=== PATIENT | male | born 1945 | race Caucasian/White ===

== ENCOUNTER 2016-11-08 12:09 | Outpatient (CLI) | payer MEDICARE ==
[~2016-11-08] VITALS: Ht 182.9 cm; Wt 83.2 kg
--- NOTE | ~2016-11-08 | HEMODYNAMI ---
PATIENT:MEENA BARGER MEDICAL RECORD: [id number] : 41 LOCATION:D.CAT ADMISSION DATE: 11/08/16 Generatedon:11/08/201615:16 Patient name: MEENA BARGER Patient #: [id number] SSN: : 1945 Date of study: 11/08/2016 Page: Of Hemodynamic Procedure Report Patient Data Patient Demographics Procedure consent was obtained First Name: MEENA Gender: Male Last Name: CHARBEL : 1945 Middle Initial: E Age: 71 year(s) Patient #: [id number] Race: Unknown Additional ID: [id number] Contact details [address]: [address] [place] [address] [address] State: [place] City: [place] Zip code: [address] Past Medical History Allergies Allergen Reaction Date Comments Reported Other allergy 11/08/2016 nsaids Admission Admission Data Admission Date: 11/08/2016 Admission Time: 12:09 Height (in.): 72 BSA: 2.05 (m2) Height (cm.): 182.88 BMI: 24.82 (kg/m2) Weight (lbs.): 183 Weight (kg.): 83.01 Procedure Procedure Types Cath Procedure Diagnostic Procedure PPM/ICD Permanent Pacer Generator Exg. Miscellaneous Procedures Moderate Sedation up to 30 minutes Procedure Description Procedure Date Procedure Date: 11/08/2016 Procedure Start Time: 14:49 Procedure End Time: 15:14 Procedure Staff Name Function Dewayne Cee MD Assisting physician Anshul Adkins RT Monitor Saji Ochoa RT Scrub Cristel Zapien RN Nurse Chava Stovall MD Performing Physician Procedure Data Cath Procedure Estimated blood loss: 5 ml Procedure Medications Medication Administration Route Dosage Ancef (1Gm/50ml NS) I.V.P.B 1 g Ancef Irrigation added to field 1 g (1gm/500ml NS) Versed I.V. 0.5 mg Fentanyl I.V. 50 mcg Lidocaine 1% with added to field 20 ml Epi Bupivacaine 0.5% added to field 20 ml Hemodynamics Rest BSA: 2.05 (m2) O2 Consumption: Estimated: 242.67 (ml/min) O2 Consumption indexed : Estimated:118.38 (ml/min/m) Heart Rate: 78 (bpm) Snapshots Pre Cath Intra NCS Post Cath Vital Signs Time Heart Resp SPO2 NIBP (mmHg) Rhythm Pain Sedation Rate (ipm) (%) Status Level (bpm) 14:44:29 78 15 100 185/93(145) NSR 0 (11) 10(A) , No pain 14:49:02 81 15 100 198/104(148) NSR 0 (11) 10(A) , No pain 14:53:43 77 14 99 187/85(128) NSR 0 (11) 10(A) , No pain 14:58:17 76 15 98 190/82(135) NSR 0 (11) 10(A) , No pain 15:02:47 74 16 95 173/78(129) Paced 0 (11) 10(A) , No pain 15:07:14 84 15 96 165/81(124) Paced 0 (11) 10(A) , No pain 15:11:42 75 17 98 165/84(124) Paced 0 (11) 10(A) , No pain Medications Time Medication Route Dose Verified Delivered Reason Notes Effectiv eness by by 14:44:41 Ancef I.V.P.B 1 g Yarsanism Yarsanism Per (1Gm/50ml Jaye Cee MD physician NS) 14:46:05 Ancef added 1 g Yarsanism Yarsanism used for Irrigation to Jaye Cee MD procedure (1gm/500ml field NS) 14:50:17 Versed I.V. 0.5 Yarsanism Cristel for mg Jaye Zapien RN sedation 14:50:22 Fentanyl I.V. 50 Yarsanism Cristel for mcg Jaye Zapien RN sedation 14:50:43 Lidocaine added 20 ml Yarsanism Yarsanism used for 1% with Epi to Jaye Cee MD procedure field 14:51:04 Bupivacaine added 20 ml Yarsanism Yarsanism used for 0.5% to Jaye Cee MD procedure field Procedure Log Time Note 14:26:09 Saji Ochoa RT(R) sent for patient. Start room use. 14:26:10 Time tracking: Regular hours 14:26:14 Plan of Care:Hemodynamics will remain stable., Cardiac rhythm will remain stable., Comfort level will be maintained., Respiratory function will remain adequate., Patient/ family verbilizes understanding of procedure., Procedure tolerated without complication., Recovers from procedure without complications.. 14:27:07 [facility] representative Wil Thomas present for procedure. 14:29:53 Use device set Pacemaker Set 14:35:04 Patient received from Pre/Post Procedure Room to [facility] 3 Alert and oriented. Tansferred to table in Supine position. 14:35:06 Warm blankets applied, and eduardo hugger turned on for patient comfort. 14:35:06 Correct patient and procedure confirmed by team. 14:35:08 Signed procedure consent form obtained from patient. 14:35:10 ECG and BP/O2 sat monitors applied to patient. 14:39:36 Patient Height : 182.88 cm 14:39:43 Patient Weight : 83.01 kg 14:41:57 Full Disclosure recording started 14:42:19 H&P Date Dictated: 11/01/2016 Within 30 days and on chart.. 14:42:22 Pre-procedure instructions explained to patient. 14:42:24 Pre-op teaching completed and patient verbalized understanding. 14:42:26 Family in waiting room. 14:42:28 Patient NPO since Midnight. 14:42:41 Patient allergic to Other allergynsaids 14:43:11 Vital chart was started 14:43:12 Baseline sample Acquired. 14:43:18 Rhythm: sinus rhythm 14:43:25 Is the patient allergic to Iodine/contrast media? No. 14:44:34 Is patient on blood thinner?No 14:44:39 Patient diabetic? No. 14:44:41 Ancef (1Gm/50ml NS) 1 g I.V.P.B was administered by Dewayne Cee MD; Per physician; 14:44:41 If diabetic: On Metformin? No 14:44:54 Previous problem with sedation/anesthesia? No ? 14:44:56 Snore? No 14:44:58 Sleep apnea? No 14:44:59 Deviated septum? No 14:45:00 Opens mouth fully? Yes 14:45:02 Sticks out tongue? Yes 14:45:04 Airway obstruction? No ? 14:45:06 Dentures? No ? 14:45:12 Patient pain scale 0/10 ?. 14:45:29 IV patent on arrival in Lt subclavian with 0.9% NaCl at O. 14:45:50 Lab results completed and on chart. 14:46:02 Left chest area was prepped with chlora-prep and draped in sterile fashion 14:46:05 Ancef Irrigation (1gm/500ml NS) 1 g added to field was administered by Dewayne Cee MD; used for procedure; 14:46:09 Alarms reviewed by R. N. 14:46:09 Sharps counted by scrub and verified by R.N. 14:46:16 --------ALL STOP TIME OUT------ 14:46:17 Final Timeout: patient, procedure, and site verified with staff and physician. All members of the team are in agreement. 14:46:22 Left chest site verified by team. 14:46:27 Physical assessment completed. ASA score P 2 - A patient with mild systemic disease as per Dewayne Cee MD. 14:46:32 Sedation plan: IV Moderate Sedation Versed, Fentanyl 14:46:53 Use device set Femoral Dx 14:48:53 Pre sharps counted by scrub and verified by RN: Sutures: 8 Sponges: 5 Stick needles: 2 Skin needles: 2 Blade: 1 Cautery: 1 14:49:05 Procedure started. 14:49:33 Pre sharps counted by scrub and verified by RN: Sutures: 14 Sponges: 5 Stick needles: 0 Skin needles: 2 Blade: 1 Cautery: 1 14:49:38 Grounding pad site Left thigh. 14:49:41 Grounding pad site free from injury. 14:50:17 Versed 0.5 mg I.V. was administered by Cristel Zapien RN; for sedation; 14:50:22 Fentanyl 50 mcg I.V. was administered by Cristel Zapien RN; for sedation; 14:50:43 Lidocaine 1% with Epi 20 ml added to field was administered by Dewayne Cee MD; used for procedure; 14:51:01 Lidocaine 1% w/epi and Bupivacaine 0.5% to left subclavicular area by Dewayne Cee MD. 14:51:04 Bupivacaine 0.5% 20 ml added to field was administered by Dewayne Cee MD; used for procedure; 14:52:30 Mepilex Dressing opened to sterile field. 14:52:42 2.0 Ticron Multipack opened to sterile field. 14:52:44 3.0 Vicryl Multipack [id number] opened to sterile field. 14:52:45 5.0 Monocryl PS2 [id number] opened to sterile field. 14:53:11 Medtronic Adapta PPM Dual Generator opened to sterile field. 14:54:34 Incision made to left subclavicular area. 14:54:37 Generator pocket made/opened. 14:57:30 PPM Dual was removed.. 14:58:50 Ventricular lead tested. 14:58:53 Atrial lead tested. 15:02:23 PPM Dual was attached to lead(s) and inserted into pocket. 15:02:25 PPM Dual was inserted subcutaneously to left chest. 15:03:03 Generator was sutured in place with 2-0 ticron. 15:03:11 Device pocket was irrigated with Ancef. 15:04:33 Parameters-- Generator: Mode: demand. Lower Rate: 60bpm. Upper Rate: 130bpm. 15:05:11 Parameters--Ventricular P/R Wave: 6.9mV. Current: 1.2mA; Threshold: 0.4V; Impedence: 421OHMS. 15:05:48 Parameters--Atrial P/R Wave: 3.3mV. Current: 1.7mA; Threshold: 0.3V; Impedence: 451OHMS. 15:07:54 Subcutaneous closure was completed with 3-0 vicryl. 15:08:01 Skin closure was completed with 5-0 monocryl. 15:08:18 Lt Chest incision was dressed with Mepilex dressing. 15:08:28 Procedure ended.(Physican Out) 15:08:58 Post sharps counted by scrub and verified by RN: Sutures: 14 Sponges: 5 Stick needles: 0 Skin needles: 2 Blade: 1 Cautery: 1 15:09:11 Sharps counted by scrub and verified by R.N. 15:09:15 Insertion/operative site no bleeding no hematoma. 15:09:25 Post-procedure physical assessment completed. ASA score P 2 - A patient with mild systemic disease as per Dewayne Cee MD. 15:09:33 Post procedure rhythm: paced 15:09:41 Estimated blood loss: 5 ml 15:09:44 Post procedure instruction explained to patient.Patient verbalizes understanding. 15:12:09 Procedure type changed to Cath procedure, Diagnostic procedure, PPM/ICD, Permanent Pacer Generator Exg., Miscellaneous Procedures, Moderate Sedation up to 30 minutes 15:14:31 Procedure and supply charges have been captured, reviewed, submitted and are correct. 15:14:33 Vital chart was stopped 15:14:34 See physician's report for complete and final results. 15:14:37 Report given to Pre/Post Procedure Room. 15:14:40 Patient transfered to Pre/Post Procedure Room with Stretcher. 15:14:44 Procedure ended. 15:14:44 Full Disclosure recording stopped 15:14:52 End room use (Document Last) Device Usage Item Name Manufacture Quantity Catalog Hospital Part Current Minimal L ot# / Number Charge Number Stock Stock Serial# Code Tegaderm 4 3M 1 [id number] 262131 906674 [id number] 5 x 4 Diagnostic Cardinal 1 [id number] 197032 91851 104460 30 Infinity Health 5Fr Multipack catheter Acist Acist 1 29619 304253 727765 315225 5 Manifold Medical Systems Inc Acist Hand Acist 1 60037 484343 545769 224881 5 Control Medical Systems Inc Cordis 5Fr Cardinal 1 896800 5 3DRC Health Catheter (MP) Cordis 5Fr Cardinal 1 775013 5 Pigtail Health Catheter (MP) Cordis 5Fr Cardinal 1 979263 5 JL 4.0 Health Catheter (MP) [facility] 1 868099 917677 620968 086509 30 260cm J .035 wire Terumo 5Fr Terumo 1 [id number] 596128 749383 642174 40 Abie Sheath Medline Cardinal 1 [id number] 850610 52528 179168 5 Cath Pack Health Bag Microtek 1 2002S 991490 25320 381161 5 Decanter Medical Inc. Acist Acist 1 84861 714869 720746 191494 20 Syringe Medical Systems Inc Mepilex Cardinal 1 373928 937033 766455 259046 5 Dressing Health 2.0 Ticron Ethicon 2 [id number] 468618 75194 264344 5 Multipack 3.0 Vicryl Ethicon 1 [id number] 123337 183774 852075 5 Multipack [id number] 5.0 Ethicon 1 Y495G 558538 416538 235098 5 Monocryl PS2 Y495G Medtronic Medtronic 1 ADD01 743379 587938 5 n [id number] Adapta PPM 2 018-08-28 Dual Generator Signature Audit [place] Stage Time Signature Unsigned Intra-Procedure 11/08/2016 Anshul Adkins 3:16:43 PM RT(R) Signatures Monitor : Anshul Adkins RT Signature : Date : Time : [address] [address]
--- NOTE | ~2016-11-08 | OP ---
PATIENT NAME: MEENA BARGER MEDICAL RECORD: [id number] :41 LOCATION:D.CAT ADMISSION DATE: SURGEON: DEWAYNE ALEXIS MD DATE OF OPERATION: 11/08/2016 PREOPERATIVE DIAGNOSES: 1. End-of-life generator. 2. Sick sinus syndrome. 3. Atrial fibrillation. POSTOPERATIVE DIAGNOSES: 1. End-of-life generator. 2. Sick sinus syndrome. 3. Atrial fibrillation. PROCEDURE: Left subclavian vein pacemaker generator exchange. SURGEON: Dewayne Alexis MD REPORT OF PROCEDURE: The patient's left chest was prepped and draped in sterile fashion. A total of 20 mL of 1% lidocaine with epinephrine was infused into the surrounding tissues. A transverse incision was made overlying the indwelling pacemaker. The pacemaker was eviscerated through the wound and the leads were detached. These leads were checked and noted to be functioning appropriately. The new pacemaker generator was affixed to the leads. This new pacemaker generator was placed into the subcutaneous pouch and sutured down with an 0 Ti-Cron. We then irrigated out the wound with antibiotic solution. The subcutaneous tissues were then reapproximated with interrupted 3-0 Vicryl and the skin was closed with running subcutaneous 5-0 Monocryl. COMPLICATIONS: None. CONDITION: Stable. ANESTHESIA: Local. BLOOD LOSS: Minimal. TRANSINT:[id number] Voice Confirmation ID: [id number] DOCUMENT ID: [id number] DEWAYNE ALEXIS MD CC: EBONY ANTHONY M.D. and GLENN DEVI MD [id number] DICTATION DATE: 11/08/16 1511 MANAGER OF PURCHASING: 11/09/16 0104 DEP CLI 11/08/16 [id number] [place] [address]
[~2016-11-08 12:09] MED LIST: ASPIRIN 81 MG E81 MG PO; CATAPRES0.1 MG PO; COREG25 MG PO; ELIQUIS2.5 MG PO; HYDROCODONE-APA1 TAB PO; MICARDIS40 MG PO; MULTIPLE VITAMI1 TA1 PO; OXYCODONE HCL5 MG OR; OXYCONTIN15 MG PO; PROZAC20 MG PO; STOOL SOFTENER240 MG PO; SUBUTEX8 MG SL; [UNRECOGNIZED DRUG - OTHER]
[2016-11-08] MEDS ORDERED: BUPRENORPHINE HC8 MG SL (13:12)
[2016-11-08] MEDS ORDERED: CATAPRES0.1 MG PO (13:14)
[2016-11-08] MEDS ORDERED: MULTIPLE VITAMI1 TA1 PO (13:14)
[2016-11-08] MEDS ORDERED: DULERA 200 MCG8.8 GM INH (13:15)
[2016-11-08] MEDS ORDERED: VITAMIN D250000 UNIT PO (13:17)
[2016-11-08] MEDS ORDERED: VITAMIN C1000 MG PO (13:18)
[2016-11-08] MEDS ORDERED: VITAMIN B-12500 MC1 PO (13:18)
[2016-11-08] MEDS ORDERED: OMEGA 3 FISH OI1 CAP PO (13:19)
[2016-11-08 13:23] VITALS: BP 154/74; Ht 182.9 cm; Wt 83.2 kg
[2016-11-08 13:29] LABS: HEMATOCRIT 36.7 % (42.0-54.0); HEMOGLOBIN 12.1 g/dL (13.5-17.5); MCH 32.2 pg (26.0-34.0); MCV 97.6 fL (80.0-100.0); MEAN PLATELET VOLUME 9.9 fL (7.4-10.4); RBC 3.76 10x6/uL (4.20-6.10); RDW 13.9 % (11.5-14.5); WBC 7.3 10x3/uL (4.8-10.8)
[2016-11-08 13:51] LABS: INR 0.96 (0.85-1.17); PROTIME 12.6 SECONDS (11.6-15.0)
[2016-11-08 13:52] LABS: APTT 26.9 SECONDS (22.8-39.4)
[2016-11-08 13:53] LABS: ANION GAP 12.8 mmol/L (8-16); CALCIUM 9.1 mg/dL (8.5-10.1); CARBON DIOXIDE 28.9 mmol/L (21.0-32.0); CREATININE - SERUM 1.1 mg/dL (0.6-1.3); POTASSIUM - SERUM 4.7 mmol/L (3.5-5.1)
--- NOTE | 2016-11-08 16:02 | NUR ---
VSS WITH CHEST PAIN DENIED PATIENT SITTING UP ON BEDSIDE EATING SANDWICH. DRESSING TO L/CHEST CDI NO BLEEDING NO HEMATOMA. TELEMETRY READING OF PACED AT 64
--- NOTE | 2016-11-08 16:20 | NUR ---
IV D'C WITH CATH TIP INTACT, WRITTEN AND VERBAL INSTRUCTIONS GIVEN TO PT AND UNDERSTOOD. UP TO RESTROOM- VOID
== END 2016-11-08 16:30 | disposition home or self-care (01) ==
LOC: D.CATH 12:09
PROVIDERS: Internal Medicine Interventional Cardiology
DX: Z45.010 Encounter for checking and testing of cardiac pacemaker pulse generator [battery] (principal); I49.5 Sick sinus syndrome; I48.91 Unspecified atrial fibrillation; Z01.812 Encounter for preprocedural laboratory examination

== ENCOUNTER 2017-03-15 17:05 | Emergency (ER) | payer MEDICARE ==
[2016-11-08 13:23] VITALS: BMI 24.8
[~2017-03-15 17:05] MED LIST changes: +BUPRENORPHINE HC8 MG SL; +DULERA 200 MCG8.8 GM INH; +OMEGA 3 FISH OI1 CAP PO; +VITAMIN B-12500 MC1 PO; +VITAMIN C1000 MG PO; +VITAMIN D250000 UNIT PO
[2017-03-15 19:45] LABS: BASOPHILS 0.2 % (0-2); EOSINOPHILS 0.6 % (0-7); HEMATOCRIT 38.3 % (42.0-54.0); HEMOGLOBIN 13.1 g/dL (13.5-17.5); IMMATURE GRANULOCYTES 0.2 % (0-5); LYMPHOCYTES 24.7 % (15-50); MCH 31.6 pg (26.0-34.0); MCHC 34.2 g/dL (31.0-37.0); MCV 92.5 fL (80.0-100.0); MEAN PLATELET VOLUME 9.4 fL (7.4-10.4); MONOCYTES 8.2 % (2-11); NEUTROPHILS 66.1 % (40-80); PLATELET COUNT 311 10x3/uL (130-400); RBC 4.14 10x6/uL (4.20-6.10); RDW 13.9 % (11.5-14.5); WBC 9.9 10x3/uL (4.8-10.8)
[2017-03-15 19:57] LABS: INR 0.89 (0.85-1.17); PROTIME 11.9 SECONDS (11.6-15.0)
[2017-03-15 20:06] LABS: APPEARANCE CLEAR (CLEAR); BILIRUBIN NEGATIVE (NEGATIVE); COLOR YELLOW (YELLOW); GLUCOSE NEGATIVE (NEGATIVE); KETONE NEGATIVE (NEGATIVE); LEUKOCYTE ESTERASE NEGATIVE (NEGATIVE); NITRITE NEGATIVE (NEGATIVE); PROTEIN NEGATIVE (NEGATIVE); SPECIFIC GRAVITY 1.015 (1.005-1.020); UROBILINOGEN NORMAL (NORMAL)
[2017-03-15 20:08] LABS: RED CELLS - URINE 0-5 /hpf (0-5); WHITE CELLS - URINE OCC /hpf (0-5)
[2017-03-15 20:19] LABS: ALBUMIN 4.3 g/dL (3.4-5.0); ALKALINE PHOSPHATASE 115 U/L (46-116); ALT (SGPT) 28 U/L (10-68); CALC OSMOLALITY 272 mosm/kg (275-300); CALCIUM 9.5 mg/dL (8.5-10.1); CARBON DIOXIDE 29.9 mmol/L (21.0-32.0); CHLORIDE - SERUM 98 mmol/L (98-107); GLUCOSE 103 mg/dL (74-106); POTASSIUM - SERUM 4.4 mmol/L (3.5-5.1); PROTEIN - SERUM 7.7 g/dL (6.4-8.2); SODIUM 134 mmol/L (136-145); UREA NITROGEN 26 mg/dL (7-18); eGFR NON AFRICAN AMERICAN 78 mL/min (90-120)
[2017-03-15 20:28] LABS: CREATINE KINASE 71 UL (21-232); MAGNESIUM - SERUM 2.1 mg/dL (1.8-2.4); PRO BNP 593 pg/mL (0-125); TROPONIN-I < 0.017 ng/mL (0.000-0.060)
== END 2017-03-15 21:20 | disposition home or self-care (01) ==
LOC: D.ER 17:05
PROVIDERS: Nurse Practitioner Family
DX: N39.0 Urinary tract infection, site not specified (principal); I10 Essential (primary) hypertension; Z95.0 Presence of cardiac pacemaker; I45.10 Unspecified right bundle-branch block

== ENCOUNTER 2018-07-06 16:45 | Emergency (ER) | payer MEDICARE ==
[~2018-07-06] VITALS: Ht 182.9 cm; Wt 95.5 kg
[2018-07-06 17:21] VITALS: Ht 182.9 cm; Wt 95.5 kg
[2018-07-06 21:40] VITALS: BP 214/86
== END 2018-07-06 21:40 | disposition home or self-care (01) ==
LOC: D.ER 16:45
DX: K59.00 Constipation, unspecified (principal)

== ENCOUNTER 2018-08-25 17:52 | Inpatient (IN) | payer MEDICARE ==
[~2018-08-25] VITALS: Ht 182.9 cm; Wt 95.5 kg
[2018-08-25] VITALS (8 sets, daily range): BP systolic 142–180; BP diastolic 55–75; Ht 182.9 cm; Wt 95.5 kg
[2018-08-25 18:32] LABS: BASOPHILS 0.3 % (0-2); EOSINOPHILS 1.3 % (0-7); HEMOGLOBIN 12.4 g/dL (13.5-17.5); IMMATURE GRANULOCYTES 0.3 % (0-5); LYMPHOCYTES 28.1 % (15-50); MCHC 34.4 g/dL (31.0-37.0); MEAN PLATELET VOLUME 8.9 fL (7.4-10.4); MONOCYTES 7.8 % (2-11); NEUTROPHILS 62.2 % (40-80); PLATELET COUNT 303 10x3/uL (130-400); RBC 3.87 10x6/uL (4.20-6.10); RDW 14.9 % (11.5-14.5); WBC 11.8 10x3/uL (4.8-10.8)
[2018-08-25 18:44] LABS: APTT 26.1 SECONDS (22.8-39.4); INR 0.94 (0.85-1.17); PROTIME 12.1 SECONDS (11.6-15.0)
[2018-08-25 18:55] LABS: ALKALINE PHOSPHATASE 91 U/L (46-116); ALT (SGPT) 27 U/L (10-68); BILIRUBIN - TOTAL 0.36 mg/dL (0.2-1.3); CALC OSMOLALITY 282 mosm/kg (275-300); CALCIUM 8.6 mg/dL (8.5-10.1); CARBON DIOXIDE 23.7 mmol/L (21.0-32.0); CHLORIDE - SERUM 101 mmol/L (98-107); CKMB 3.9 U/L (0.0-3.6); CREATINE KINASE 59 UL (21-232); CREATININE - SERUM 1.3 mg/dL (0.6-1.3); GLUCOSE 108 mg/dL (74-106); MAGNESIUM - SERUM 2.2 mg/dL (1.8-2.4); POTASSIUM - SERUM 4.5 mmol/L (3.5-5.1); PROTEIN - SERUM 7.2 g/dL (6.4-8.2); SODIUM 138 mmol/L (136-145); TROPONIN-I < 0.017 ng/mL (0.000-0.060); UREA NITROGEN 30 mg/dL (7-18); eGFR NON AFRICAN AMERICAN 57 mL/min (90-120)
[2018-08-25] MEDS ORDERED: BUPRENORPHINE HC2 MG SL (21:44)
[2018-08-25] MEDS ORDERED: MIRALAX17 GM PO (21:45)
--- NOTE | 2018-08-25 22:25 | NUR ---
PT ARRIVED VIA ER VIA WHEELCHAIR. NO DISTRESS NOTED. PT REQUESTED SOME FOOD. PT BROUGHT A SANDWICH TRAY AND HE BECAME VERY UPSET YELLING ABOUT ALL THE SODIUM IN THE LUNCHMEAT AND HOW CAN A HOSPITAL SERVE THAT STUFF. INFORMED PT WILL GET SOME ICE CREAM AND PUDDING. PT ATE EVERYTHING FROM THE SANDWICH TRAY EXCEPT THE LUNCHMEAT. ADMISSION ASSESSMENT, HISTORY AND HOME MED LIST COMPLETED. BP 180/73. INFORMED PT WILL RECHECK AT 2300 AFTER HE HAD A CHANCE TO REST. ALERT AND ORIENTED TO PERSON, PLACE AND TIME. HENRY. EQUAL AND STRONG HAND AND FOOT STRENGHT. SASCHA. LUNGS CTA. IV TO [facility]. PT REFUSED IV FLUIDS BECAUSE OF THE SODIUM. PT USES A CAND TO AMBULAT DUE TO MULTIPLE JOINT SURGERIES. PT CURRENTLY EATING ICE CREAM, CALL LIGHT WITHIN [facility] AND SR UP X2.
--- NOTE | 2018-08-25 23:23 | NUR ---
RECHECKED PT'S BP WITH RESULTS 142/55. PT VERY PLEASED WITH RESULTS.
--- NOTE | 2018-08-26 00:28 | NUR ---
PT RESTING WITH EYES CLOSED. RESP EVEN AND REGULAR. SR UP X2, CALL LIGHT WITHIN REACH.
--- NOTE | 2018-08-26 03:09 | NUR ---
PT RESTING WITH EYES CLOSED. RESP EVEN AND REGULAR. SR UP X2, CALL LIGHT WITHIN REACH.
[2018-08-26 03:55] VITALS: BP 133/57
--- NOTE | 2018-08-26 04:31 | NUR ---
PT AWAKE; DENIES ANY DISCOMFORT. BP NOW 133/57. CALL LIGHT WITHIN REACH.
[2018-08-26 06:22] LABS: BASOPHILS 0.3 % (0-2); EOSINOPHILS 0.5 % (0-7); HEMATOCRIT 32.7 % (42.0-54.0); HEMOGLOBIN 11.1 g/dL (13.5-17.5); IMMATURE GRANULOCYTES 0.1 % (0-5); MCH 31.8 pg (26.0-34.0); MCHC 33.9 g/dL (31.0-37.0); MCV 93.7 fL (80.0-100.0); MEAN PLATELET VOLUME 9.2 fL (7.4-10.4); NEUTROPHILS 68.1 % (40-80); PLATELET COUNT 282 10x3/uL (130-400); RBC 3.49 10x6/uL (4.20-6.10); RDW 15.2 % (11.5-14.5)
--- NOTE | 2018-08-26 06:28 | NUR ---
VSS THIS AM. PACED RHYTHM PER CM. PT DENIED ANY DISCOMFORT. NEEDS MET; WILL CONTINUE TO MONITOR.
[2018-08-26 06:34] LABS: WBC 7.4 10x3/uL (4.8-10.8)
[2018-08-26 06:38] LABS: CALC OSMOLALITY 283 mosm/kg (275-300); CALCIUM 8.2 mg/dL (8.5-10.1); CARBON DIOXIDE 27.3 mmol/L (21.0-32.0); CHLORIDE - SERUM 105 mmol/L (98-107); GLUCOSE 84 mg/dL (74-106); POTASSIUM - SERUM 4.9 mmol/L (3.5-5.1); SODIUM 141 mmol/L (136-145); UREA NITROGEN 25 mg/dL (7-18); eGFR NON AFRICAN AMERICAN 77 mL/min (90-120)
--- NOTE | 2018-08-26 07:35 | NUR ---
ALERT AND ORIENTED. TELEMERTY SHOWS PACED RHYTHM. LEFT AC SL. UP AB MAGI. NO NEEDS VOICED. WALKS WITH A WATSON. SR UP WITH CALL LIGHT IN REACH
[2018-08-26 08:51] VITALS: BP 126/59
--- NOTE | 2018-08-26 10:40 | NUR ---
AGREE WITH BOX SORTER ASSESSMENT
[2018-08-26 14:43] VITALS: BP 174/71
--- NOTE | 2018-08-26 14:48 | NUR ---
LYING QUIETLY WITH VISITOR AT BED AT BEDSIDE, TELEMERTY SHOWS PACEDRHYTHM
--- NOTE | 2018-08-26 17:19 | NUR ---
UP ON SIDE OF BED, DENIES ANY NEEDS. WILL MONITOR
[2018-08-26 17:50] LABS: % SATURATION 22 % (15-55); IRON 48 ug/dl (35-150); TOTAL IRON BIND CAPACITY 212 ug/dl (260-445); UNSAT IRON BIND CAPACITY 164 ug/dl (150-375)
[2018-08-26] MEDS ORDERED: NORVASC10 MG PO (19:01)
[2018-08-26 19:44] VITALS: BP 148/80
--- NOTE | 2018-08-26 19:46 | NUR ---
ORDERS RECEIVED FOR DC. VSS. PACED RHYTHM PER CM HR 71. IV TO [facility] DC'D WITH CATHETER INTACT. ALERT AND ORIENTED TO PERSON, PLACE AND TIME.
--- NOTE | 2018-08-26 20:33 | NUR ---
PT STATED NOT TO CALL IN RX FOR NORVASC HE WAS NOT GOING TO FILL IT. STATED IT CAUSED TOO MANY PROBLEMS WHEN HE TOOK IN THE PAST. [facility] HAS APPT WITH DR ANTHONY AT 1200 TOMORROW AND WILL DISCUSS OTHER BP OPTIONS. PT DC'D. FRIEND HERE TO DRIVE HOME. TO POV VIA W/C.
--- NOTE | 2018-08-27 10:28 | MORECARE ---
CASE MANAGEMENT DISCHARGE SUMMARY PATIENT: MEENA BARGER UNIT: [id number] ADM DATE: 08/25/18 AGE: 73 : 43 SEX: M ROOM/BED: D.2123 AUTHOR: CARLOS EPSTEIN PHYSICIAN: REFERRING PHYSICIAN: JAH GRAY MD DATE OF SERVICE: 08/27/18 Discharge Plan Patient Name: MEENA BARGER [facility] [facility] 1945 Planned Disposition: Home Anticipated Discharge Date: 08/26/18 Discharge Date: 08/26/2018 Expected LOS: 1 Initial Reviewer: [email or web address] Initial Review Date: 08/27/2018 Generated: 08/27/18 11:28 am Patient Name: MEENA BARGER Page [id number] at 1028 All edits/amendments must be made on the electronic document DICTATION DATE: 08/27/18 1027 NSH TEACHER: POLLY 08/27/18 1027 RPT#: [id number] DC DATE:08/26/18 STATUS: DIS IN [facility] [address] [place] [address] END OF REPORT
[2018-08-28 09:24] LABS: FOLATE (FOLIC ACID) - SERUM >20.0 ng/mL (>3.0)
== END 2018-08-26 20:36 | disposition home or self-care (01) | DRG 305 ==
LOC: D.ER 17:52 → D.M2 20:15
PROVIDERS: Family Medicine; Internal Medicine Nephrology; ADMIT Emergency Medicine; ATTEND Emergency Medicine
DX: I16.0 Hypertensive urgency (principal); F11.20 Opioid dependence, uncomplicated; R51 Headache; D64.9 Anemia, unspecified; F32.9 Major depressive disorder, single episode, unspecified; Z95.0 Presence of cardiac pacemaker

== ENCOUNTER 2019-07-19 07:34 | Observation (INO) | payer MEDICARE ==
[~2019-07-19] VITALS: Ht 182.9 cm; Wt 95.5 kg
[~2019-07-19 07:34] MED LIST changes: +BUPRENORPHINE HC2 MG SL; +MIRALAX17 GM PO; +NORVASC10 MG PO
[2019-07-19] MEDS ORDERED: VITAMIN B-121000 MCG (08:44)
[2019-07-19 09:08] LABS: BASOPHILS 0 % (0-2); EOSINOPHILS 0 % (0-7); HEMATOCRIT 38.3 % (42.0-54.0); HEMOGLOBIN 12.6 g/dL (13.5-17.5); IMMATURE GRANULOCYTES 0.2 % (0-5); LYMPHOCYTES 6.9 % (15-50); MCH 30.6 pg (26.0-34.0); MCHC 32.9 g/dL (31.0-37.0); MEAN PLATELET VOLUME 8.9 fL (7.4-10.4); MONOCYTES 4.3 % (2-11); NEUTROPHILS 88.6 % (40-80); RBC 4.12 10x6/uL (4.20-6.10); RDW 14.6 % (11.5-14.5); WBC 9.5 10x3/uL (4.8-10.8)
[2019-07-19 09:12] LABS: APPEARANCE CLEAR (CLEAR); BACTERIA FEW /hpf (NEGATIVE); BILIRUBIN NEGATIVE (NEGATIVE); COLOR YELLOW (YELLOW); EPITHELIAL CELLS RARE /hpf (0-5); GLUCOSE NEGATIVE (NEGATIVE); KETONE NEGATIVE (NEGATIVE); NITRITE NEGATIVE (NEGATIVE); PROTEIN TRACE mg/dL (NEGATIVE); RED CELLS - URINE 0-5 /hpf (0-5); UROBILINOGEN NORMAL (NORMAL)
[2019-07-19 09:17] LABS: ANION GAP 14.9 mmol/L (8-16); CALCIUM 9.1 mg/dL (8.5-10.1); CARBON DIOXIDE 25.3 mmol/L (21.0-32.0); CREATININE - SERUM 1.1 mg/dL (0.6-1.3); POTASSIUM - SERUM 4.2 mmol/L (3.5-5.1)
[2019-07-19 09:18] LABS: PLATELET COUNT 381 10x3/uL (130-400)
[2019-07-19 09:26] LABS: ALBUMIN 3.9 g/dL (3.4-5.0); BILIRUBIN - TOTAL 0.4 mg/dL (0.2-1.3); PROTEIN - SERUM 7.7 g/dL (6.4-8.2); TROPONIN-I 0.022 ng/mL (0.000-0.060)
--- NOTE | 2019-07-19 11:10 | NUR ---
REPORT GIVEN TO JS LORENZANA USING SBAR. AT 1100
[2019-07-19 11:42] VITALS: BP 197/83; Ht 182.9 cm; Wt 95.5 kg
--- NOTE | 2019-07-19 14:48 | NUR ---
1 BAG OF SOAP SUDS ENEMA GIVEN. PATIENT TOLERATING WELL. 1 BM ALREADY. 2 BM WAS BROWN AND WATERY. CL IN REACH. WCTM
[2019-07-19 15:14] VITALS: BP 188/71
--- NOTE | 2019-07-19 15:33 | NUR ---
PATIENT HAD ANOTHER WATERY BROWN BOWEL MOVEMENT. I REASSURED HIM THAT IT WOULD TURN CLEAR. CL IN REACH. 2 DIET SODAS REQUESTED AND PROVIDED. WCTM
[2019-07-19 19:29] VITALS: BP 177/82
[2019-07-19 20:00] VITALS: BP 177/82
--- NOTE | 2019-07-19 20:06 | NUR ---
IV THERAPY REMOVED FROM RIGHT AC. DISCHARGE INSTRUCTIONS GIVEN. PATIENT VERBALIZED UNDERSTANDING. WHEELED DOWNSTAIRS WITH HIS RIDE.
== END 2019-07-19 20:40 | disposition home or self-care (01) ==
LOC: D.ER 07:34 → D.MS 10:38 → D.ER 11:09 → OBSVTIME 12:00 → D.MS 20:40
PROVIDERS: Family Medicine; ADMIT Internal Medicine Nephrology; ATTEND Internal Medicine Nephrology
DX: K59.00 Constipation, unspecified (principal); I10 Essential (primary) hypertension; M19.90 Unspecified osteoarthritis, unspecified site